=== PATIENT | male | born 1960 | race Caucasian/White ===

== ENCOUNTER 2017-01-06 09:06 | Inpatient (IN) | payer OTHER ==
--- NOTE | 2017-01-04 23:15 | Pre-op HX & Phy Repo 2 SIG ---
DATE OF ADMISSION: HISTORY OF PRESENT ILLNESS: The patient is a 56-year-old male in overall stable health with a malfunctioning Miller continent ileostomy with progressively more difficult intubations with bleeding. The patient developed ulcerative colitis in 1978. In 1981 he underwent proctocolectomy with Olga ileostomy. He had severe allergies to the appliances required and in 1995 he underwent conversion of his malfunctioning conventional ileostomy to a Miller type of Kock pouch continent ileostomy. In September 2014 he underwent surgery because of severe incontinence of stool and gas and frequent intubations. He was found to have a very scarred pouch which was resected and a new Miller continent ileostomy was created. The pathology revealed no evidence of Crohn's disease. After the surgery over two years ago, the patient did very well. In August 2016, he noted that occasionally his 30-Latvian Medena or Elena silicone intubation catheters would fold over at the tip and present difficulty withdrawing the catheter. This has become progressively more severe despite his keeping an indwelling catheter in place for a period of days. When he removes the catheter, the same problems continued. He has difficulty with every intubation, sometimes much more severe than others and some blood with every intubation. He is scheduled to undergo pouch endoscopy and then surgical revision of his malfunctioning Miller continent ileostomy. MEDICATIONS: Propranolol 40 mg twice a day for hypertension, clonazepam 1 mg twice a day, oxycodone 10 mg every 3 to 4 hours and during the night for chronic back and neck pain as well as myofascial pain, and ibuprofen 800 mg one to two times a day for myofascial pain. ALLERGIES TO MEDICATIONS: None. OPERATIONS: In addition to the above, he underwent sinus surgery in the past. REVIEW OF SYSTEMS: Chronic back and neck pain and chronic myofascial pain for many years. PHYSICAL EXAMINATION: VITAL SIGNS: The patient is 5 foot, 7 inches and approximately 185 pounds. [place] and will be examined upon arrival and dictated separately. IMPRESSION: 1. Malfunctioning Miller continent ileostomy with severe difficulty with intubation and bleeding. 2. History of ulcerative colitis. 3. Status post multiple abdominal operations. 3.1. Proctocolectomy and Olga ileostomy in 1981. 3.2. Creation of Miller continent ileostomy in 1995. 3.3. Resection of failed Miller continent ileostomy and creation of new Miller continent ileostomy in September 2014. 4. Hypertension. 5. Chronic back and neck pain and chronic myofascial pain. DISCUSSION: The patient will undergo pouch endoscopy, which will reveal the cause of his difficulty. As indicated by the endoscopy, he will undergo surgery and I will have a full discussion in person when the [place] and is examined and I will answer all questions. I will discuss the endoscopic findings and the planned surgery, options, and risks. He will undergo insertion of a dual lumen PICC line, bowel prep, with concomitant intravenous hydration and intravenous preoperative antibiotics and preoperative subcutaneous heparin. Talha Luna M.D. DR: Duyen JOB#: [id number] CC: WAYNE
[~2017-01-06] VITALS: Ht 170.2 cm; Wt 77.1 kg
[~2017-01-06 09:06] MED LIST: INDERAL LA60 MG ORAL; KLONOPIN1 MG ORAL; MULTIVITAMINS1 EAC2 ORAL; OXYCODONE HCL10 MG ORAL; VITAMIN D1000 UNI1 ORAL
[2017-01-06 09:45] VITALS: BP 115/79
[2017-01-06] MEDS ORDERED: Heparin 2000 units/Ns 1000ml INJ ONE (10:15)
[2017-01-06] MEDS ORDERED: Lidocaine 1% Plain 30 ml INJ ONE (10:15)
[2017-01-06 10:50] LABS: BASOPHILS % (AUTO) 0.9 % (0.0-2.0); EOSINOPHILS % (AUTO) 4.7 % (0.0-3.0); LYMPHOCYTES % (AUTO) 23.8 % (20.0-45.0); MEAN CORPUSCULAR HGB CONC 33.6 G/DL (32.0-36.0); MEAN CORPUSCULAR VOLUME 92 FL (80-99); MEAN PLATELET VOLUME 7.9 FL (6.5-10.1); MONOCYTES % (AUTO) 9.8 % (1.0-10.0); NEUTROPHILS % (AUTO) 60.8 % (45.0-75.0); PLATELET COUNT 215 K/UL (150-450); RED BLOOD COUNT 4.37 M/UL (4.70-6.10); RED CELL DISTRIBUTION WIDTH 11.6 % (11.6-14.8); WHITE BLOOD COUNT 6.5 K/UL (4.8-10.8)
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
[2017-01-06 10:59] LABS: PROTHROMBIN TIME 10.2 SEC (9.30-11.50)
[2017-01-06 11:07] LABS: ALANINE AMINOTRANSFERASE 31 U/L (3-41); ALBUMIN/GLOBULIN RATIO 1.5 (1.0-2.7); ANION GAP 11 (5-15); ASPARTATE AMINO TRANSFERASE 31 U/L (5-40); CALCIUM 9.3 mg/dL (8.6-10.2); CARBON DIOXIDE 28 mEQ/L (20-30); CHLORIDE 99 mEQ/L (98-107); GLOMERULAR FILTRATION RATE > 60 mL/min (>60); HEMOLYSIS 3; POTASSIUM 3.9 mEQ/L (3.4-4.9); SODIUM 138 mEQ/L (135-145)
[2017-01-06 12:00] VITALS: BP 132/89
[2017-01-06] MEDS: Propranolol ER 60mg cap ORAL SCH ×2 (12:11→17:55)
[2017-01-06] MEDS: Neomycin Sulfate 500mg Tab ORAL SCH ×3 (12:11→19:42)
--- NOTE | 2017-01-06 12:19 | Diagnostic Imaging Report ---
Indication: Cough Comparison: 09/17/14 A single view chest radiograph was obtained. Findings: Cardiomediastinal appearance is within normal limits for age. There is a PICC line present in the left arm. Tip terminates in the SVC. Pulmonary vascularity is appropriate. The diaphragmatic contour is smooth and costophrenic angles are sharp. No pleural effusions are identified. The bones are unremarkable. Impression: No acute findings
--- NOTE | 2017-01-06 12:38 | General Progress Note ---
Progress Note Progress Note H&P dictated. Imp. Malfunctioning Miller continent ileostomy Plan; Raymond endoscopy, prep for surgery in YING GORMAN Jan 06, 2017 12:38
--- NOTE | 2017-01-06 12:38 | Pre-Procedure Note/Attestation ---
Pre-Procedure Note/Attestation Complete Prior to Procedure Planned Procedure: not applicable Procedure Narrative: Miller continent ileostomy pouch endoscopy Indications for Procedure Pre-Operative Diagnosis: malfunctioning Miller continent ileostomy with difficulty with intubation Attestation I attest that I discussed the nature of the procedure; its benefits; risks and complications; and alternatives (and the risks and benefits of such alternatives ), prior to the procedure, with the patient (or the patient's legal direct sales representative). I attest that, if there was a reasonable possibility of needing a blood transfusion, the patient (or the patient's legal direct sales representative) was given the [facility] standardized written summary, pursuant to the [place] Blood Safety Act ([place] Health and Safety Code # 1645, as amended). I attest that I re-evaluated the patient just prior to the surgery and that there has been no change in the patient's H&P, except as documented below:none YING MÉNDEZ Jan 06, 2017 12:38
[2017-01-06 13:15] LABS: APPEARANCE,URINE CLEAR; KETONES,URINE 3+ (NEGATIVE); LEUKOCYTE ESTERASE ,URINE NEGATIVE (NEGATIVE); NITRITE,URINE NEGATIVE (NEGATIVE); PH,URINE 6 (4.5-8.0); PROTEIN,URINE NEGATIVE (NEGATIVE); UROBILINOGEN,URINE NORMAL MG/DL (0.0-1.0)
--- NOTE | 2017-01-06 13:20 | Brief Operative Note ---
Immediate Post Operative Note Operative Note Pre-op Diagnosis: malfunctioning Miller continent ileostomy with difficulty with intubation Procedure: Miller pouch endoscopy Post-op Diagnosis: redundant, angulated access segment, normal pouch and valve Post-op Diagnosis: same as pre-op Findings: consistent w/pre-op dx studies Surgeon: lizett Anesthesiologist: daysi Anesthesia: other - none Specimen: none Complications: none Condition: stable Fluids: none Estimated Blood Loss: none Drains: other - 26 fr cueto to Miller pouch Implant(s) used?: YING Rivera Jan 06, 2017 13:20
[2017-01-06 13:24] LABS: RBC,URINE 0 /HPF (0 - 0); SQUAMOUS EPITHELIAL CELL,UR OCCASIONAL /LPF (NONE/OCC); WBC,URINE 0-2 /HPF (0 - 0)
[2017-01-06 13:30] VITALS: BP 128/83
[2017-01-06] MEDS: oxyCODONE 5mg IR tab ORAL PRN ×2 (13:49→17:55)
[2017-01-06 16:00] VITALS: BP 114/75
[2017-01-06] MEDS: Oxymetazoline 0.05% Na Spray 30ml NASAL SCH (17:55)
[2017-01-06] MEDS: D5 1/2NS w/KCl 20mEq 1,000 ML IV SCH (17:56)
[2017-01-06 20:00] VITALS: BP 130/76
[2017-01-07] VITALS (15 sets, daily range): BP systolic 85–118; BP diastolic 57–82
[2017-01-07] MEDS: oxyCODONE 5mg IR tab ORAL PRN (00:41)
[2017-01-07] MEDS ORDERED: Unasyn 3gm Inj ONE ×2 (00:48)
[2017-01-07] MEDS: Ampicillin/Sulbactam Sod 3 GM in NS 110 ML IVPB SCH ×4 (05:28→12:00)
[2017-01-07] MEDS: D5 1/2NS w/KCl 20mEq 1,000 ML IV SCH (05:28)
[2017-01-07] MEDS ORDERED: Heparin 5000 units/ml inj SUBQ ONE (05:30)
[2017-01-07] MEDS ORDERED: NeoSporin Gu Irrig 1ml Amp IRRIG ONE (07:03)
[2017-01-07] MEDS ORDERED: Bacitracin 50000 Units Vial ONE (07:03)
--- NOTE | 2017-01-07 07:08 | Pre-Procedure Note/Attestation ---
Pre-Procedure Note/Attestation Complete Prior to Procedure Planned Procedure: not applicable Procedure Narrative: laparotomy with revision Miller continent ileostomy; possible gastrostomy Indications for Procedure Pre-Operative Diagnosis: malfunctioning Miller continent ileostomy with difficulty with intubation Attestation I attest that I discussed the nature of the procedure; its benefits; risks and complications; and alternatives (and the risks and benefits of such alternatives ), prior to the procedure, with the patient (or the patient's legal accounting representative). I attest that, if there was a reasonable possibility of needing a blood transfusion, the patient (or the patient's legal accounting representative) was given the [facility] standardized written summary, pursuant to the [place] Blood Safety Act ([place] Health and Safety Code # 1645, as amended). I attest that I re-evaluated the patient just prior to the surgery and that there has been no change in the patient's H&P, except as documented below:none YING MÉNDEZ Jan 07, 2017 07:08
[2017-01-07] MEDS ORDERED: Sterile Water Irrig 1000ml IRRIG ONE (07:30)
[2017-01-07] MEDS ORDERED: Propofol 200mg/20ml IV ONE (07:30)
[2017-01-07] MEDS ORDERED: Midazolam 2mg/2ml Inj ONE (07:30)
[2017-01-07] MEDS ORDERED: NS Irrig 1000ml ONE (07:30)
[2017-01-07] MEDS ORDERED: fentaNYL 250mcg/5ml ONE (07:30)
[2017-01-07] MEDS ORDERED: LR 1000ml ONE (07:30)
[2017-01-07] MEDS ORDERED: Lidocaine 1% MPF 10mg/ml 5ml ONE (07:30)
[2017-01-07] MEDS ORDERED: Morphine Sulfate 10mg/ml Inj ONE (07:30)
[2017-01-07] MEDS ORDERED: Ketorolac 30mg Inj ONE (07:30)
[2017-01-07] MEDS ORDERED: Neostigmine 1mg/ml 10ml Inj ONE (07:30)
[2017-01-07] MEDS ORDERED: Zemuron 50mg/5ml Inj IV ONE (07:30)
[2017-01-07] MEDS ORDERED: Succinylcholine 20mg/ml 10ml vial ONE (07:30)
[2017-01-07] MEDS ORDERED: Glycopyrrolate 0.2mg/ml 1ml Vial ONE (07:30)
[2017-01-07] MEDS ORDERED: NS Irrig 1000ml IRRIG ONE (07:35)
[2017-01-07] MEDS ORDERED: LR 1000ml 1,000 ML IVLG SCH (08:24)
[2017-01-07] MEDS ORDERED: Ketorolac 30mg Inj IV PRN (08:30)
[2017-01-07] MEDS ORDERED: Midazolam 2mg/2ml Inj IVP PRN (08:30)
[2017-01-07] MEDS ORDERED: Meperidine 25mg/0.5ml Inj (FOR RIGORS ONLY) IV PRN (08:30)
[2017-01-07] MEDS ORDERED: Hydromorphone 0.5mg/0.5ml inj IVP PRN (08:30)
[2017-01-07] MEDS ORDERED: DiphenhydrAMINE 50mg/ml Inj IVP PRN ×2 (08:30→10:15)
[2017-01-07] MEDS: Dyna-Hex 2% Top Sol 2oz TOPIC SCH (09:00)
[2017-01-07] MEDS: Propranolol ER 60mg cap ORAL SCH ×2 (09:00→17:36)
[2017-01-07] MEDS: Oxymetazoline 0.05% Na Spray 30ml NASAL SCH ×2 (09:00→17:36)
[2017-01-07] MEDS ORDERED: Rate Change PCA 1 Each MISC PRN (10:15)
[2017-01-07] MEDS ORDERED: Naloxone 0.4mg/ml Inj IVP PRN (10:15)
--- NOTE | 2017-01-07 10:21 | Brief Operative Note ---
Immediate Post Operative Note Operative Note Pre-op Diagnosis: malfunctioning Miller continent ileostomy with difficulty with intubation Procedure: laparotomy with revision Miller Pouch stoma and access segment Post-op Diagnosis: malfunctioning Miller continent ileostomy Post-op Diagnosis: same as pre-op Findings: consistent w/pre-op dx studies Surgeon: lizett Crystal Machining Coordinator: carire Anesthesiologist: deepti Anesthesia: general Specimen: yes - stoma and access segment Complications: none Condition: stable Fluids: see anesthesia record Estimated Blood Loss: volume - 50ml Drains: other - 28 cueto to Miller pouch Implant(s) used?: No YING MÉNDEZ Jan 07, 2017 10:21
--- NOTE | 2017-01-07 10:30 | Immediate Post-Op Evaluation ---
Immediate Post-Op Evalulation Immediate Post-Op Evalulation Procedure: Exploratory laparotomy,lysis of adhesions, revision of continent pouch Date of Evaluation: Jan 07, 2017 Time of Evaluation: 10:29 IV Fluids: 1200 Blood Products: none Estimated Blood Loss: 100 Urinary Output: 450 Blood Pressure Systolic: 110 Blood Pressure Diastolic: 71 Pulse Rate: 80 Respiratory Rate: 20 O2 Sat by Pulse Oximetry: 98 Temperature (Fahrenheit): 98.2 Pain Score (1-10): 2 Nausea: No Vomiting: No Complications none Patient Status: awake, patent, extubated, none Hydration Status: adequate Drug: as scheduled DHAAR STEWART M.D. Jan 07, 2017 10:30
--- NOTE | 2017-01-07 10:46 | Pre-op HX & Phy Repo 2 SIG ---
DATE OF ADMISSION: 01/06/2017 HISTORY OF PRESENT ILLNESS: The [place]. Please see previously dictated history. PHYSICAL EXAMINATION: GENERAL: He is well developed and well nourished, 5 foot 7 inches, approximately 185 pounds. HEENT: Within normal limits. LUNGS: Clear. HEART: Regular rhythm. BREASTS: Without masses. ABDOMEN: Soft and somewhat distended. There is a long midline incision and the stoma of the Miller continent ileostomy low on the right lower quadrant. GENITALIA: Within normal limits. RECTAL: Status post proctectomy. EXTREMITIES: Without edema. Pulses 2+ femoral to pedal bilaterally. NEUROLOGIC: Physiologic. IMPRESSION: 1. Malfunctioning Miller continent ileostomy with severe difficulty with intubation. 2. History of ulcerative colitis. 3. Status post multiple abdominal operations. 3.1. Proctocolectomy and Olga ileostomy in 1981. 3.2. Creation of Miller continent ileostomy in 1995. 3.3. Resection of failed Miller continent ileostomy and creation of new Miller continent ileostomy in September 2014. 4. Hypertension. 5. Chronic back and neck pain. 6. Chronic myofascial pain. DISCUSSION: The patient has undergone pouch endoscopy revealing a normal pouch and well-formed nipple valve but redundancy and elongation with angulation of the access segment. I have had a full discussion with the patient regarding the nature of surgery including laparotomy revision of the pouch and stoma and access segment and possible catheter gastrostomy. He understands that additional procedures may be needed based on intraoperative findings. I have had a full discussion regarding the nature of the procedures and risks including bleeding, infection, injury to adjacent structures or organs, recurrent difficulties with the pouch leading to additional procedures being necessary, deep vein thrombosis despite prophylaxis, etc. All questions have been answered. He understands and agrees to proceed. Talha Luna M.D. DR: LIZANDRO JOB#: [id number] CC:
[2017-01-07] MEDS ORDERED: Morphine Sulfate 2mg/ml Inj IVP PRN (11:00)
[2017-01-07] MEDS ORDERED: Morphine Sulfate 4mg/ml Inj SUBQ PRN (11:00)
[2017-01-07] MEDS: PCA Morphine 1mg/ml 30 ML IV PRN ×2 (11:06→20:16)
--- NOTE | 2017-01-07 11:30 | 48 Hour Post Anesthesia Eval ---
Post Anesthesia Evaluation Procedure: Exploratory laparotomy,lysis of adhesions, revision of continent pouch Date of Evaluation: Jan 07, 2017 Time of Evaluation: 11:29 Blood Pressure Systolic: 96 0: 58 Pulse Rate: 64 Respiratory Rate: 20 Temperature (Fahrenheit): 97.6 O2 Sat by Pulse Oximetry: 98 Airway: patent Nausea: No Vomiting: No Pain Intensity: 3 Hydration Status: adequate Cardiopulmonary Status: stable Mental Status/LOC: patient returned to baseline Follow-up Care/Observations: n/a Post-Anesthesia Complications: none Follow-up care needed: N/A DHARA STEWART M.D. Jan 07, 2017 11:30
[2017-01-07] MEDS ORDERED: PCA Education Pamphlet MISC ONE (13:00)
[2017-01-07] MEDS ORDERED: Acetaminophen 650mg/20.3ml GT PRN (13:00)
[2017-01-07] MEDS ORDERED: D5 1/4NS w/KCl 20mEq 1,000 ML IV SCH (13:00)
[2017-01-07] MEDS ORDERED: LORazepam 1mg tab SL PRN ×2 (13:00→21:00)
[2017-01-07] MEDS ORDERED: ALPRAZolam 0.5mg tab ORAL ONE (16:30)
[2017-01-07] MEDS: Ampicillin/Sulbactam Sod 3 GM in NS 110 ML IV SCH (17:36)
[2017-01-07] MEDS: PCA shift volume MISC SCH (19:24)
[2017-01-07] MEDS: D5 1/4NS w/KCl 20mEq 1,000 ML IV SCH (21:57)
[2017-01-07] MEDS: ALPRAZolam 0.25mg tab ORAL PRN (23:00)
[2017-01-08 00:04] VITALS: BP 113/74
[2017-01-08] MEDS: Ampicillin/Sulbactam Sod 3 GM in NS 110 ML IV SCH ×5 (00:12→23:30)
--- NOTE | 2017-01-08 03:15 | Operative Note - Dictated ---
DATE OF OPERATION: 01/07/2017 SURGEON: Talha Luna M.D. HOLLOW HANDLE KNIFE ASSEMBLER SURGEON: Arnoldo Loving M.D. ANESTHESIOLOGIST: Jermain Iglesias M.D. TYPE OF ANESTHESIA: General endotracheal. PREOPERATIVE DIAGNOSES: 1. Malfunctioning Miller continent ileostomy with severe difficulty with intubation and bleeding. 2. History of ulcerative colitis. 3. STATUS POST MULTIPLE ABDOMINAL OPERATIONS: 3.1. Proctocolectomy and Olga ileostomy in 1981. 3.2. Creation of Miller continent ileostomy in 1995. 3.3. Resection of failed Miller continent ileostomy and creation of new Miller continent ileostomy pouch in September 2014. POSTOPERATIVE DIAGNOSES: 1. Malfunctioning Miller continent ileostomy with severe difficulty with intubation and bleeding. 2. History of ulcerative colitis. 3. STATUS POST MULTIPLE ABDOMINAL OPERATIONS: 3.1. Proctocolectomy and Olga ileostomy in 1981. 3.2. Creation of Miller continent ileostomy in 1995. 3.3. Resection of failed Miller continent ileostomy and creation of new Miller continent ileostomy pouch in September 2014. OPERATION PERFORMED: Laparotomy with revision of Miller continent ileostomy stoma and access segment. DESCRIPTION OF PROCEDURE: The patient was taken to the operating room and under general endotracheal anesthesia having received preoperative intravenous antibiotics and subcutaneous heparin and with sequential compression device stockings and Pereira catheter in place utilizing a 16-Romanian coude catheter, the patient was prepped and draped in the usual fashion. Previous left paramedian incision was reopened from umbilicus to pubis excising the upper part of the scar, which had been widened. There were diffuse adhesions to the anterior abdominal wall and between loops of bowel. The continent ileostomy pouch was densely adherent to the bladder and retroperitoneum. It was completely mobilized from the retroperitoneum protecting the bladder and ureters. The stoma in the right lower quadrant was circumscribed with a transversely oriented elliptical incision bringing the stoma and access segment with its mesentery into the abdominal cavity. The access segment was clearly redundant as had been evident on the pouch endoscopy. With the access segment on stretch, I could readily insert a 28-Romanian Pereira catheter into the pouch as well as a Gilbert suction without any limitation. In view of the patient reporting no incontinence at all and the findings of a normal pouch and nipple valve on endoscopy, I saw no reason to open the pouch. We did manually occlude the afferent bowel with the catheter in the pouch and distended it with 400 mL of saline. Upon removing the catheter, there was no incontinence. The catheter was reintroduced and the pouch decompressed. The operative field was irrigated and inspected for hemostasis, which was secure. The medial aspect of the stoma incision was closed with several interrupted 4-0 Monocryl subcuticular sutures. Then the stoma and access segment were brought through the same location in the right lower quadrant. The pouch was sutured to the peritoneum with 3-0 Vicryl sutures. The 28-Romanian Pereira catheter again was passed readily into the pouch and then the redundant access segment placed on stretch and the redundancy excised and the stoma primarily matured with continuous 2-0 chromic locking sutures starting at the 3 and 9 o'clock positions. A very satisfactory stoma was achieved. The position of the catheter tip in the apex of the pouch was confirmed and the catheter was marked at the level of the stoma with a 3-0 silk suture and it was then sutured to the skin with 2 sutures of 2-0 silk. The catheter was flushed and connected to a gravity drainage bag. The anesthesiologist passed an orogastric tube just to decompress the stomach, but I did not see any indication for catheter gastrostomy in this patient. After ascertaining that hemostasis was secure and having protected the abdominal wall throughout the procedure with antibiotic soaked laps, the left paramedian incision was closed with continuous #1 Prolene inverting the knots. Subcutaneous tissues again irrigated with antibiotic solution and the skin closed with jonna. Dry sterile dressings were applied. Final sponge and needle counts were correct. The patient tolerated the procedure well and left the operating room in good condition. Talha Luna M.D. DR: AGUSTIN JOB#: [id number] CC: WAYNE
[2017-01-08 04:29] VITALS: BP 100/60
[2017-01-08 05:22] LABS: BASOPHILS % (AUTO) 0.7 % (0.0-2.0); EOSINOPHILS % (AUTO) 1.4 % (0.0-3.0); MEAN CORPUSCULAR HEMOGLOBIN 31.7 PG (27.0-31.0); MEAN CORPUSCULAR HGB CONC 34.1 G/DL (32.0-36.0); MEAN CORPUSCULAR VOLUME 93 FL (80-99); MEAN PLATELET VOLUME 8.7 FL (6.5-10.1); MONOCYTES % (AUTO) 8.5 % (1.0-10.0); NEUTROPHILS % (AUTO) 77.4 % (45.0-75.0); PLATELET COUNT 166 K/UL (150-450); RED BLOOD COUNT 3.69 M/UL (4.70-6.10); RED CELL DISTRIBUTION WIDTH 11.6 % (11.6-14.8); WHITE BLOOD COUNT 9.3 K/UL (4.8-10.8)
[2017-01-08 05:50] LABS: ANION GAP 8 (5-15); CALCIUM 8.2 mg/dL (8.6-10.2); CARBON DIOXIDE 28 mEQ/L (20-30); CHLORIDE 105 mEQ/L (98-107); CREATININE 0.7 mg/dL (0.7-1.2); GLOMERULAR FILTRATION RATE > 60 mL/min (>60); HEMOLYSIS 2; POTASSIUM 3.6 mEQ/L (3.4-4.9); SODIUM 141 mEQ/L (135-145)
[2017-01-08] MEDS: D5 1/4NS w/KCl 20mEq 1,000 ML IV SCH ×3 (05:52→20:38)
[2017-01-08] MEDS: PCA Morphine 1mg/ml 30 ML IV PRN ×2 (06:05→15:55)
[2017-01-08] MEDS: PCA shift volume MISC SCH ×2 (07:06→19:15)
[2017-01-08 08:08] VITALS: BP 102/64
[2017-01-08] MEDS: Oxymetazoline 0.05% Na Spray 30ml NASAL SCH (08:14)
[2017-01-08] MEDS: Propranolol ER 60mg cap ORAL SCH ×2 (08:15→17:04)
[2017-01-08] MEDS: Dyna-Hex 2% Top Sol 2oz TOPIC SCH (08:15)
--- NOTE | 2017-01-08 09:44 | General Progress Note ---
Progress Note Progress Note AVSS pain controlled with MS CONCRETE VAULT MAKER Chest clear, Cor reg rhythm Abdomen distended and tympanitic, incision clean, stoma pink Urine only 350cc overnight BCIR ileo 25cc WBC 9300 Hgb 11.7 BUN 10 Cr 0.7 Imp: Ileus Plan: NPO Mobilize f/u labs YING MÉNDEZ Jan 08, 2017 09:44
[2017-01-08] MEDS ORDERED: NS Irrig 1000ml ONE (09:52)
[2017-01-08] MEDS ORDERED: Tubing IV Secondary IV ONE (09:52)
[2017-01-08] MEDS ORDERED: Rate Change PCA 1 Each MISC PRN (10:00)
[2017-01-08] MEDS ORDERED: DiphenhydrAMINE 50mg/ml Inj IVP PRN (10:00)
[2017-01-08] MEDS ORDERED: Naloxone 0.4mg/ml Inj IVP PRN (10:00)
[2017-01-08] MEDS ORDERED: Morphine Sulfate 2mg/ml Inj IVP PRN (10:00)
[2017-01-08 11:49] VITALS: BP 112/73
[2017-01-08] MEDS: Morphine Sulfate 4mg/ml Inj SUBQ PRN ×2 (12:11→20:39)
--- NOTE | 2017-01-08 12:43 | Cardiology Report ---
APPROVED REPORT EKG Measurement Heart [id number] Normal sinus rhythm Normal ECG
[2017-01-08 16:00] VITALS: BP 103/70
[2017-01-08] MEDS: Pseudoephedrine 30mg tab ORAL PRN (16:55)
[2017-01-08 20:09] VITALS: BP 114/73
[2017-01-08] MEDS: ALPRAZolam 0.25mg tab ORAL PRN (23:38)
[2017-01-09 00:06] VITALS: BP 106/70
[2017-01-09] MEDS: PCA Morphine 1mg/ml 30 ML IV PRN (02:05)
[2017-01-09] MEDS: Pseudoephedrine 30mg tab ORAL PRN (03:07)
[2017-01-09 04:08] VITALS: BP 108/75
[2017-01-09 05:28] LABS: EOSINOPHILS % (AUTO) 3.1 % (0.0-3.0); LYMPHOCYTES % (AUTO) 18.5 % (20.0-45.0); MEAN CORPUSCULAR HEMOGLOBIN 33.4 PG (27.0-31.0); MEAN CORPUSCULAR VOLUME 93 FL (80-99); MEAN PLATELET VOLUME 8.2 FL (6.5-10.1); MONOCYTES % (AUTO) 10.8 % (1.0-10.0); NEUTROPHILS % (AUTO) 66.6 % (45.0-75.0); PLATELET COUNT 125 K/UL (150-450); RED BLOOD COUNT 3.38 M/UL (4.70-6.10); RED CELL DISTRIBUTION WIDTH 11.5 % (11.6-14.8)
[2017-01-09] MEDS: D5 1/4NS w/KCl 20mEq 1,000 ML IV SCH ×3 (06:00→21:31)
[2017-01-09 06:05] LABS: ANION GAP 10 (5-15); CALCIUM 8.2 mg/dL (8.6-10.2); CARBON DIOXIDE 28 mEQ/L (20-30); CHLORIDE 99 mEQ/L (98-107); CREATININE 0.7 mg/dL (0.7-1.2); GLOMERULAR FILTRATION RATE > 60 mL/min (>60); HEMOLYSIS 7; POTASSIUM 3.6 mEQ/L (3.4-4.9); SODIUM 137 mEQ/L (135-145)
[2017-01-09 06:06] LABS: HEMOLYSIS 9; IRON 21 ug/dL (59-158); TOTAL IRON BINDING CAPACITY 192 ug/dL (250-400)
[2017-01-09] MEDS: Ampicillin/Sulbactam Sod 3 GM in NS 110 ML IV SCH ×3 (06:20→17:11)
[2017-01-09] MEDS: PCA shift volume MISC SCH ×2 (07:05→19:04)
[2017-01-09] MEDS: Propranolol ER 60mg cap ORAL SCH ×2 (08:29→17:09)
[2017-01-09] MEDS: Dyna-Hex 2% Top Sol 2oz TOPIC SCH (08:29)
[2017-01-09 08:33] VITALS: BP 126/80
--- NOTE | 2017-01-09 09:06 | General Progress Note ---
Progress Note Progress Note AVSS Crying intermittently c/o sinus congestion and nausea Abdomen distended, soft, incision clean, stoma pink Urine 1800 (up) BCIR ileo 35 enteric WBC 9000 Hgb 11.5 stable Platelets 125,000 Iron 21 B12 level 139 Imp. Ileus Sinus congestion Low iron/B12 levels Plan: NPO continue Pereira (pelvic dissection) Give Venofer 100mg IV daily + B12 IM x 2 Afrin + sudafed d/c continuous basal infusion of PHYSICAL SECURITY MANAGER d/c Flagyl - continue YING Scott Jan 09, 2017 09:06
[2017-01-09] MEDS ORDERED: Naloxone 0.4mg/ml Inj IVP PRN (09:30)
[2017-01-09] MEDS ORDERED: Morphine Sulfate 4mg/ml Inj SUBQ PRN (09:30)
[2017-01-09] MEDS ORDERED: DiphenhydrAMINE 50mg/ml Inj IVP PRN (09:30)
[2017-01-09] MEDS ORDERED: Rate Change PCA 1 Each MISC PRN (09:30)
[2017-01-09] MEDS ORDERED: PCA Morphine 1mg/ml 30 ML IV PRN (09:30)
[2017-01-09] MEDS ORDERED: Morphine Sulfate 2mg/ml Inj IVP PRN (09:30)
[2017-01-09] MEDS ORDERED: Vitamin B12 1000mcg/ml Inj IM ONE (10:00)
[2017-01-09] MEDS: Oxymetazoline 0.05% Na Spray 30ml NASAL PRN ×2 (10:44→22:39)
[2017-01-09 12:00] VITALS: BP 126/84
[2017-01-09] MEDS ORDERED: NS 500ML IV ONE (15:47)
[2017-01-09 16:00] VITALS: BP 128/86
[2017-01-09 20:00] VITALS: BP 131/83
[2017-01-09] MEDS: Iron Sucrose 100 MG in NS 55 ML IV SCH (21:30)
[2017-01-09] MEDS: ALPRAZolam 0.25mg tab ORAL PRN (22:38)
[2017-01-10] VITALS: BP 139/87
[2017-01-10] MEDS ORDERED: Acetaminophen 650mg/20.3ml ORAL PRN (01:00)
[2017-01-10 04:00] VITALS: BP 127/81
[2017-01-10] MEDS: Ampicillin/Sulbactam Sod 3 GM in NS 110 ML IV SCH ×4 (05:45→11:27)
[2017-01-10] MEDS: D5 1/4NS w/KCl 20mEq 1,000 ML IV SCH ×3 (05:45→21:42)
[2017-01-10] MEDS: PCA shift volume MISC SCH ×2 (07:12→19:04)
[2017-01-10 08:00] VITALS: BP 111/71
[2017-01-10] MEDS: Dyna-Hex 2% Top Sol 2oz TOPIC SCH (08:45)
[2017-01-10] MEDS: Propranolol ER 60mg cap ORAL SCH ×2 (08:48→17:19)
[2017-01-10] MEDS ORDERED: Naloxone 0.4mg/ml Inj IVP PRN (09:56)
[2017-01-10] MEDS ORDERED: Rate Change PCA 1 Each MISC PRN (10:00)
[2017-01-10] MEDS ORDERED: PCA Morphine 1mg/ml 30 ML IV PRN (10:00)
[2017-01-10] MEDS ORDERED: Morphine Sulfate 4mg/ml Inj SUBQ PRN (10:00)
[2017-01-10] MEDS ORDERED: Morphine Sulfate 2mg/ml Inj IVP PRN (10:00)
[2017-01-10] MEDS ORDERED: DiphenhydrAMINE 50mg/ml Inj IVP PRN (10:00)
--- NOTE | 2017-01-10 10:06 | General Progress Note ---
Progress Note Progress Note AVSS Doing better this AM - had been crying and upset. Better without basal infusion of COMMERCIAL LOAN CLOSER Abdomen much less distended, healing nicely Urine 4350 BCIR ileo 610 Imp. Improving Plan; D/C antibiotics Ambulate in hallways BID Add'l B12 dose IM .labs in AM continue NPO YING MÉNDEZ Jan 10, 2017 10:06
[2017-01-10] MEDS ORDERED: Vitamin B12 1000mcg/ml Inj IM ONE (10:30)
[2017-01-10] MEDS ORDERED: Tubing IV Secondary IV ONE (11:30)
[2017-01-10 12:00] VITALS: BP 119/77
[2017-01-10] MEDS: Oxymetazoline 0.05% Na Spray 30ml NASAL PRN (14:41)
[2017-01-10 16:00] VITALS: BP 143/87
[2017-01-10 20:00] VITALS: BP 133/86
[2017-01-10] MEDS: Iron Sucrose 100 MG in NS 55 ML IV SCH (21:00)
[2017-01-11] VITALS: BP 139/84
[2017-01-11] MEDS: ALPRAZolam 0.25mg tab ORAL PRN (01:37)
[2017-01-11 04:00] VITALS: BP 123/77
[2017-01-11] MEDS: D5 1/4NS w/KCl 20mEq 1,000 ML IV SCH ×3 (05:05→22:13)
[2017-01-11 05:16] LABS: BASOPHILS % (AUTO) 1.1 % (0.0-2.0); EOSINOPHILS % (AUTO) 7.3 % (0.0-3.0); LYMPHOCYTES % (AUTO) 22.9 % (20.0-45.0); MEAN CORPUSCULAR HEMOGLOBIN 33.2 PG (27.0-31.0); MEAN CORPUSCULAR HGB CONC 35.8 G/DL (32.0-36.0); MEAN CORPUSCULAR VOLUME 93 FL (80-99); MEAN PLATELET VOLUME 8.4 FL (6.5-10.1); MONOCYTES % (AUTO) 11.9 % (1.0-10.0); NEUTROPHILS % (AUTO) 56.8 % (45.0-75.0); PLATELET COUNT 200 K/UL (150-450); RED BLOOD COUNT 3.68 M/UL (4.70-6.10); RED CELL DISTRIBUTION WIDTH 11.6 % (11.6-14.8); WHITE BLOOD COUNT 7.5 K/UL (4.8-10.8)
[2017-01-11 05:32] LABS: ANION GAP 10 (5-15); CALCIUM 8.9 mg/dL (8.6-10.2); CARBON DIOXIDE 29 mEQ/L (20-30); CHLORIDE 100 mEQ/L (98-107); CREATININE 0.7 mg/dL (0.7-1.2); GLOMERULAR FILTRATION RATE > 60 mL/min (>60); HEMOLYSIS 2; POTASSIUM 3.4 mEQ/L (3.4-4.9); SODIUM 139 mEQ/L (135-145)
[2017-01-11] MEDS: PCA shift volume MISC SCH ×2 (07:23→19:00)
[2017-01-11 07:58] VITALS: BP 112/76
[2017-01-11] MEDS: Propranolol ER 60mg cap ORAL SCH ×2 (08:40→17:01)
[2017-01-11] MEDS: Dyna-Hex 2% Top Sol 2oz TOPIC SCH (08:42)
--- NOTE | 2017-01-11 11:25 | General Progress Note ---
Progress Note Progress Note AVSS Ambulating freely; hungry Abdomen soft, non-distended, healing nicely Urine 3450 BCIR ileo 1340 WBC 7500 Hgb up 12.2 K 3.4 Imp. Resolving ileus Plan: Clear liquid diet will d/c urinary cueto in YING GORMAN Jan 11, 2017 11:25
[2017-01-11] MEDS ORDERED: DiphenhydrAMINE 50mg/ml Inj IVP PRN (11:30)
[2017-01-11] MEDS ORDERED: PCA Morphine 1mg/ml 30 ML IV PRN (11:30)
[2017-01-11] MEDS ORDERED: Naloxone 0.4mg/ml Inj IVP PRN (11:30)
[2017-01-11] MEDS ORDERED: Morphine Sulfate 4mg/ml Inj SUBQ PRN (11:30)
[2017-01-11] MEDS ORDERED: Morphine Sulfate 2mg/ml Inj IVP PRN (11:30)
[2017-01-11] MEDS ORDERED: Rate Change PCA 1 Each MISC PRN (11:30)
[2017-01-11 12:00] VITALS: BP 149/95
[2017-01-11 15:59] VITALS: BP 120/75
[2017-01-11] MEDS: Oxymetazoline 0.05% Na Spray 30ml NASAL PRN (19:36)
[2017-01-11 20:00] VITALS: BP 140/95
[2017-01-11] MEDS: Iron Sucrose 100 MG in NS 55 ML IV SCH (21:00)
[2017-01-12] VITALS: BP 144/84
[2017-01-12] MEDS: ALPRAZolam 0.25mg tab ORAL PRN ×2 (01:52→15:57)
[2017-01-12 04:00] VITALS: BP 121/75
[2017-01-12] MEDS: PCA shift volume MISC SCH ×2 (07:00→19:00)
[2017-01-12 08:24] VITALS: BP 115/69
[2017-01-12] MEDS: Oxymetazoline 0.05% Na Spray 30ml NASAL PRN (08:58)
[2017-01-12] MEDS: Dyna-Hex 2% Top Sol 2oz TOPIC SCH (08:58)
[2017-01-12] MEDS: Propranolol ER 60mg cap ORAL SCH ×2 (08:58→17:28)
[2017-01-12] MEDS ORDERED: Naloxone 0.4mg/ml Inj IVP PRN (09:00)
[2017-01-12] MEDS ORDERED: Rate Change PCA 1 Each MISC PRN (09:00)
--- NOTE | 2017-01-12 09:11 | General Progress Note ---
Progress Note Progress Note AVSS Tolerated clear liquid diet. Abdomen slightly protruberant but not tympanitic, healing nicely Urine 3285 BCIR ileo 1290 Imp: Improving Plan: Full liquid diet decrease IV fluids - continue LAUNDRY OR DRY CLEANERS COUNTER CLERK one more day then resume pre- admission oxycodone labs in AM Maintain continuous drainage of BCIR continent ileostomy YING MÉNDEZ Jan 12, 2017 09:11
[2017-01-12] MEDS ORDERED: Morphine Sulfate 2mg/ml Inj IVP PRN (09:30)
[2017-01-12] MEDS ORDERED: D5 1/4NS w/KCl 20mEq 1,000 ML IV SCH (11:30)
[2017-01-12] MEDS ORDERED: PCA Morphine 1mg/ml 30 ML IV PRN (11:30)
[2017-01-12] MEDS ORDERED: DiphenhydrAMINE 50mg/ml Inj IVP PRN (11:30)
[2017-01-12] MEDS ORDERED: Morphine Sulfate 4mg/ml Inj SUBQ PRN (11:30)
[2017-01-12 12:01] VITALS: BP 111/74
[2017-01-12 16:49] VITALS: BP 124/77
[2017-01-12 20:00] VITALS: BP 128/85
[2017-01-12] MEDS: Iron Sucrose 100 MG in NS 55 ML IV SCH (21:03)
[2017-01-13] VITALS: BP 113/77
[2017-01-13 04:00] VITALS: BP 114/78
[2017-01-13 04:42] LABS: BASOPHILS % (AUTO) 1.2 % (0.0-2.0); EOSINOPHILS % (AUTO) 6.3 % (0.0-3.0); LYMPHOCYTES % (AUTO) 24.3 % (20.0-45.0); MEAN CORPUSCULAR HEMOGLOBIN 31.1 PG (27.0-31.0); MEAN CORPUSCULAR HGB CONC 33.5 G/DL (32.0-36.0); MEAN CORPUSCULAR VOLUME 93 FL (80-99); MEAN PLATELET VOLUME 7.3 FL (6.5-10.1); MONOCYTES % (AUTO) 10.4 % (1.0-10.0); NEUTROPHILS % (AUTO) 57.9 % (45.0-75.0); PLATELET COUNT 244 K/UL (150-450); RED BLOOD COUNT 4.49 M/UL (4.70-6.10); RED CELL DISTRIBUTION WIDTH 11.9 % (11.6-14.8); WHITE BLOOD COUNT 7.4 K/UL (4.8-10.8)
[2017-01-13 05:03] LABS: ANION GAP 12 (5-15); CALCIUM 9.6 mg/dL (8.6-10.2); CARBON DIOXIDE 30 mEQ/L (20-30); CHLORIDE 99 mEQ/L (98-107); CREATININE 0.8 mg/dL (0.7-1.2); GLOMERULAR FILTRATION RATE > 60 mL/min (>60); HEMOLYSIS 1; POTASSIUM 3.8 mEQ/L (3.4-4.9); SODIUM 141 mEQ/L (135-145)
[2017-01-13] MEDS: PCA shift volume MISC SCH (07:12)
[2017-01-13 08:22] VITALS: BP 109/78
--- NOTE | 2017-01-13 08:42 | General Progress Note ---
Progress Note Progress Note AVSS Doing well with full liquid diet. Abdomen soft, healing nicely Urine 1330 BCIR ileo 1965 WBC 7400 Hgb 13.9 BUN 6 Cr 0.8 Imp. Improving Plan; BCIR low residue diet D/C RUBBER BELT SPLICER and resume pre-admission Oxycodone 10mg po q4h prn pain Maintain continuous drainage of BCIR Continent Ileostomy with qa3h flushing by RNs YING MÉNDEZ Jan 13, 2017 08:42
[2017-01-13] MEDS: Propranolol ER 60mg cap ORAL SCH ×2 (08:59→17:45)
[2017-01-13] MEDS: Dyna-Hex 2% Top Sol 2oz TOPIC SCH (09:01)
[2017-01-13] MEDS: oxyCODONE 5mg IR tab ORAL PRN ×4 (09:12→23:11)
[2017-01-13] MEDS ORDERED: NS Irrig 1000ml ONE (11:09)
[2017-01-13] MEDS ORDERED: Tubing IV Secondary IV ONE (11:09)
[2017-01-13 11:39] VITALS: BP 112/81
[2017-01-13 15:48] VITALS: BP 99/70
[2017-01-13] MEDS: Ascorbic Acid 500mg tab ORAL PRN ×2 (16:26→17:50)
[2017-01-13 20:10] VITALS: BP 124/80
[2017-01-13] MEDS: Iron Sucrose 100 MG in NS 55 ML IV SCH (21:00)
[2017-01-14] VITALS (9 sets, daily range): BP systolic 98–136; BP diastolic 63–77
[2017-01-14] MEDS: oxyCODONE 5mg IR tab ORAL PRN ×5 (06:39→23:20)
[2017-01-14] MEDS: Dyna-Hex 2% Top Sol 2oz TOPIC SCH (08:51)
[2017-01-14] MEDS: Propranolol ER 60mg cap ORAL SCH ×2 (08:51→17:49)
--- NOTE | 2017-01-14 10:16 | General Progress Note ---
Progress Note Progress Note AVSS Tolerating BCIR low residue diet Abdomen soft, healing nicely Urine only 1225 BCIr ileo 2320 Imp. Excessive ileostomy output with early dehydration Plan; Resume IV fluids Stool for C. diff toxin f/u labs If C.diff negative and large volume effluent continues, will start Cipro and Flagyl for pouchitis/bacterial overgrowth enteritis YING MÉNDEZ Jan 14, 2017 10:16
[2017-01-14] MEDS ORDERED: ALPRAZolam 0.5mg tab ORAL PRN (10:30)
[2017-01-14] MEDS: Oxymetazoline 0.05% Na Spray 30ml NASAL PRN (10:41)
[2017-01-14] MEDS: D5 1/4NS w/KCl 20mEq 1,000 ML IV SCH ×2 (12:10→20:53)
[2017-01-14] MEDS ORDERED: NS Irrig 1000ml ONE (17:10)
[2017-01-14] MEDS ORDERED: NS 500ML IV ONE (17:10)
[2017-01-14] MEDS ORDERED: Tubing IV Secondary IV ONE (17:10)
[2017-01-15] VITALS: BP 112/81
[2017-01-15] MEDS: Ascorbic Acid 500mg tab ORAL PRN ×2 (03:35→16:16)
[2017-01-15] MEDS: oxyCODONE 5mg IR tab ORAL PRN ×5 (03:35→20:50)
[2017-01-15 04:00] VITALS: BP 125/75
[2017-01-15 05:41] LABS: BASOPHILS % (AUTO) 1.2 % (0.0-2.0); LYMPHOCYTES % (AUTO) 24.2 % (20.0-45.0); MEAN CORPUSCULAR HEMOGLOBIN 33.1 PG (27.0-31.0); MEAN CORPUSCULAR HGB CONC 35.3 G/DL (32.0-36.0); MEAN CORPUSCULAR VOLUME 94 FL (80-99); MEAN PLATELET VOLUME 7.9 FL (6.5-10.1); MONOCYTES % (AUTO) 11.3 % (1.0-10.0); NEUTROPHILS % (AUTO) 57.2 % (45.0-75.0); PLATELET COUNT 251 K/UL (150-450); RED BLOOD COUNT 4.08 M/UL (4.70-6.10); RED CELL DISTRIBUTION WIDTH 12.1 % (11.6-14.8); WHITE BLOOD COUNT 7.8 K/UL (4.8-10.8)
[2017-01-15 06:04] LABS: ALANINE AMINOTRANSFERASE 15 U/L (3-41); ASPARTATE AMINO TRANSFERASE 20 U/L (5-40); CALCIUM 9.3 mg/dL (8.6-10.2); CARBON DIOXIDE 30 mEQ/L (20-30); CHLORIDE 100 mEQ/L (98-107); CREATININE 0.8 mg/dL (0.7-1.2); GLOMERULAR FILTRATION RATE > 60 mL/min (>60); HEMOLYSIS 0; SODIUM 138 mEQ/L (135-145); TOTAL PROTEIN 6.7 g/dL (6.6-8.7)
[2017-01-15 06:05] LABS: ANION GAP 8 (5-15); POTASSIUM 4.2 mEQ/L (3.4-4.9)
[2017-01-15] MEDS: D5 1/4NS w/KCl 20mEq 1,000 ML IV SCH (07:30)
[2017-01-15 08:00] VITALS: BP 111/73
[2017-01-15] MEDS: Propranolol ER 60mg cap ORAL SCH ×2 (08:10→17:14)
[2017-01-15] MEDS: Dyna-Hex 2% Top Sol 2oz TOPIC SCH (08:11)
--- NOTE | 2017-01-15 09:14 | General Progress Note ---
Progress Note Progress Note AVSS Much less ileostomy output past 24 hours Abdomen soft. Fluid under mid-point of incision - aspirated of 9cc serous - will send for C&S Urine 2650 BCIR ileo 1550 C. diff toxin - negative WBC 7800 Hgb 13.5 BUN 11 Cr 0.8 Albumin 3.5 Imp. Improved Plan: D/C IV fluids Start RN supervised BCIR self-intubations in AM if stable overnight YING MÉNDEZ Jan 15, 2017 09:14
[2017-01-15 12:00] VITALS: BP 128/85
[2017-01-15 16:00] VITALS: BP 105/76
[2017-01-15 20:00] VITALS: BP 111/70
[2017-01-16] VITALS: BP 107/74
[2017-01-16] MEDS: Oxymetazoline 0.05% Na Spray 30ml NASAL PRN (00:29)
[2017-01-16] MEDS: oxyCODONE 5mg IR tab ORAL PRN ×2 (01:22→07:57)
[2017-01-16 06:18] VITALS: BP 108/69
[2017-01-16 08:15] VITALS: BP 114/80
[2017-01-16] MEDS: Propranolol ER 60mg cap ORAL SCH ×2 (08:23→17:10)
[2017-01-16] MEDS: Dyna-Hex 2% Top Sol 2oz TOPIC SCH (08:23)
--- NOTE | 2017-01-16 09:58 | General Progress Note ---
Progress Note Progress Note AVSS Feeling okay with low residue diet ABdomen soft. [place] removed and steristrips applied to upper and lower portions. Mid-part of incision opened 3cm evacuating seropurulent fluid. Packed with dry gauze Urine 2950 BCIR ileo 840 BCIR ileo catheter removed - reinserts very readily Imp.: Wound infection (despite initial C&S from aspiration reveals no growth so far) Plan; Wound care/ packing QID RN supervised BCIR continent ileostomy self-intubations q3h am to hs d/c PIC line YING MÉNDEZ Jan 16, 2017 09:58
[2017-01-16] MEDS: oxyCODONE 5mg IR tab ORAL SCH ×5 (10:53→23:50)
[2017-01-16 12:00] VITALS: BP 117/80
[2017-01-16 16:00] VITALS: BP 112/72
[2017-01-16 20:45] VITALS: BP 122/80
[2017-01-16] MEDS: Mesalamine Enema 4gm/60ml RECTAL SCH (23:50)
[2017-01-17] VITALS: BP 107/69
[2017-01-17] MEDS: oxyCODONE 5mg IR tab ORAL SCH ×8 (02:00→23:16)
[2017-01-17 04:21] VITALS: BP 113/66
[2017-01-17 07:34] VITALS: BP 119/81
--- NOTE | 2017-01-17 08:44 | General Progress Note ---
Progress Note Progress Note AVSS Intubations of BCIR continent ileostomy are going well - no difficulty, no bleeding Abdomen soft. Open wound is clean without residual fluid, but persistent erythema surrounding it. C&S - no growth Urine 2890 BCIR fileo 615 Tolerating low residue diet Tolerated Rowasa instilled into the BCIR pouch last night Imp. Improved Plan: Continue q3h RN supervised BCIR self-intubations Instruct re wound care TID packing Anticipate discharge 48 hours YING MÉNDEZ Jan 17, 2017 08:44
[2017-01-17] MEDS: Propranolol ER 60mg cap ORAL SCH ×2 (08:56→18:00)
[2017-01-17 12:00] VITALS: BP 106/70
[2017-01-17 16:00] VITALS: BP 114/81
[2017-01-17 20:00] VITALS: BP 112/76
[2017-01-17] MEDS: Mesalamine Enema 4gm/60ml RECTAL SCH (23:07)
[2017-01-18] VITALS: BP 132/81
[2017-01-18] MEDS: oxyCODONE 5mg IR tab ORAL SCH ×9 (02:30→23:44)
[2017-01-18 04:00] VITALS: BP 134/72
[2017-01-18 08:00] VITALS: BP 122/76
--- NOTE | 2017-01-18 08:41 | General Progress Note ---
Progress Note Progress Note T 102.7 Denies any specific symptoms other than not feeling well Abdomen soft, non-distended, non-tender. Open wound is clean and surrounding erythema is much decreased. C&S shows only Divina Stoma nicely healed Urine 2274 BCIR ileo 2189 (eating 100% BCIR diet) Imp.: Fever ? etiology Plan: STAT labs, blood C&S, IV fluids, and start Rocephin IV q12h STAT CT scan abd+pelvis with oral and IV contrast Insert 28 Pereira to BCIR continent ileostomy to continuous drainage YING MÉNDEZ Jan 18, 2017 08:41
[2017-01-18] MEDS ORDERED: Fluconazole 100mg tab ORAL STA (08:46)
[2017-01-18] MEDS: Propranolol ER 60mg cap ORAL SCH ×3 (09:00→18:39)
[2017-01-18 09:24] LABS: BASOPHILS % (AUTO) 0.8 % (0.0-2.0); EOSINOPHILS % (AUTO) 2.2 % (0.0-3.0); LYMPHOCYTES % (AUTO) 7.4 % (20.0-45.0); MEAN CORPUSCULAR HEMOGLOBIN 32.9 PG (27.0-31.0); MEAN CORPUSCULAR HGB CONC 34.9 G/DL (32.0-36.0); MEAN CORPUSCULAR VOLUME 94 FL (80-99); MEAN PLATELET VOLUME 8.1 FL (6.5-10.1); MONOCYTES % (AUTO) 9.3 % (1.0-10.0); NEUTROPHILS % (AUTO) 80.2 % (45.0-75.0); PLATELET COUNT 249 K/UL (150-450); RED BLOOD COUNT 4.22 M/UL (4.70-6.10); RED CELL DISTRIBUTION WIDTH 11.9 % (11.6-14.8)
[2017-01-18 09:26] LABS: ALANINE AMINOTRANSFERASE 30 U/L (3-41); ALBUMIN/GLOBULIN RATIO 1.1 (1.0-2.7); ANION GAP 12 (5-15); ASPARTATE AMINO TRANSFERASE 24 U/L (5-40); CALCIUM 9.5 mg/dL (8.6-10.2); CARBON DIOXIDE 29 mEQ/L (20-30); CHLORIDE 95 mEQ/L (98-107); CREATININE 1.1 mg/dL (0.7-1.2); GLOMERULAR FILTRATION RATE > 60 mL/min (>60); HEMOLYSIS 0; POTASSIUM 4.2 mEQ/L (3.4-4.9); SODIUM 136 mEQ/L (135-145)
[2017-01-18] MEDS: D5 1/4NS w/KCl 20mEq 1,000 ML IV SCH ×2 (09:32→19:09)
[2017-01-18] MEDS: cefTRIAXone 2 GM in D5W 110 ML IVPB SCH (09:40)
[2017-01-18 11:31] VITALS: BP 117/72
--- NOTE | 2017-01-18 11:39 | Diagnostic Imaging Report ---
Indication: Abdominal pain. History of total colectomy and Ortega pouch revision. Technique: Continuous helical transaxial imaging of the abdomen and pelvis was obtained from the lung bases to the pubic symphysis during intravenous contrast administration. Coronal 2-D reformats were also obtained. Study obtained in a Siemens sensation [address] Total Dose length Product (DLP): [address] Dose Index Volume (CTDIvol): 17.93, 0.15 mGy Comparison: None Findings: Absence of the colon noted. There is air and contrast opacified pouch within the lower abdomen associated with anastomotic sutures. There is a catheter that resides within the pouch. There is good opacification of all multiple normal caliber small bowel loops proximal to the pouch. There is no evidence of obstruction. There is no evidence of intra-abdominal or abdominal wall abscess.There is a small incisional defect or wound that is vertically oriented in the midline. (for example image 57 of series 3) with surrounding subcutaneous edema, skin thickening consistent with Cellulitis. There is no evidence of a fluid collection to suggest abscess. The dermal/subcutaneous defect is superficial and does not extend to the rectus muscle or deeper. Small epiphrenic and epicardial nodes are demonstrated near the diaphragm, nonspecific in nature. The lung bases are clear. Focal fat noted in the liver near the falciform ligament. The liver is otherwise unremarkable. The gallbladder is contracted on this exam. No abnormalities of the pancreas, kidneys or spleen identified. Aorta shows some mural calcification. There is no free fluid. Small bilateral inguinal hernias are demonstrated. The urinary bladder is mildly distended. Impression: No acute findings within the abdomen or pelvis identified. Continent ileostomy in the right lower quadrant demonstrated with good opacification of the pouch and no evidence of bowel obstruction proximal to the pouch. No evidence of intra-abdominal abscess. Status post total colectomy Focal skin defect or wound within the midline anterior abdominal wall extending into the subcutaneous fat with surrounding subcutaneous edema likely cellulitis. No evidence of a abdominal wall abscess. The CT scanner at [facility] is accredited by the [employer] and the scans are performed using dose optimization techniques as appropriate to a performed exam including Automatic Exposure control.
[2017-01-18] MEDS ORDERED: Fluconazole 100mg tab ORAL SCH (13:30)
--- NOTE | 2017-01-18 15:48 | Diagnostic Imaging Report ---
Indication: Dyspnea Comparison: 01/06/17 A single view chest radiograph was obtained. Findings: Cardiomediastinal appearance is within normal limits for age. Pulmonary vascularity is appropriate. The diaphragmatic contour is smooth and costophrenic angles are sharp. No pleural effusions are identified. The bones are unremarkable. Impression: No acute findings
[2017-01-18 16:07] VITALS: BP 134/92
[2017-01-18 20:00] VITALS: BP 114/73
--- NOTE | 2017-01-18 22:28 | Consultation ---
Consult Note Consult Note Full ID Consult dictated. Asked by Dr. Luna to evaluate acute onset today of fevers 2 weeks after revision of ileostomy, just as he was about to be Labs Test 01/18/17 08:50 White Blood Count 8.0 K/UL (4.8-10.8) Red Blood Count 4.22 M/UL (4.70-6.10) Hemoglobin 13.9 G/DL (14.2-18.0) Hematocrit 39.7 % (42.0-52.0) Mean Corpuscular Volume 94 FL (80-99) Mean Corpuscular Hemoglobin 32.9 PG (27.0-31.0) Mean Corpuscular Hemoglobin Concent 34.9 G/DL (32.0-36.0) Red Cell Distribution Width 11.9 % (11.6-14.8) Platelet Count 249 K/UL (150-450) Mean Platelet Volume 8.1 FL (6.5-10.1) Neutrophils (%) (Auto) 80.2 % (45.0-75.0) Lymphocytes (%) (Auto) 7.4 % (20.0-45.0) Monocytes (%) (Auto) 9.3 % (1.0-10.0) Eosinophils (%) (Auto) 2.2 % (0.0-3.0) Basophils (%) (Auto) 0.8 % (0.0-2.0) Sodium Level 136 mEQ/L (135-145) Potassium Level 4.2 mEQ/L (3.4-4.9) Chloride Level 95 mEQ/L (98-107) Carbon Dioxide Level 29 mEQ/L (20-30) Anion Gap 12 (5-15) Blood Urea Nitrogen 12 mg/dL (7-23) Creatinine 1.1 mg/dL (0.7-1.2) Estimat Glomerular Filtration Rate > 60 mL/min (>60) Glucose Level 101 mg/dL (74-106) Calcium Level 9.5 mg/dL (8.6-10.2) Total Bilirubin 0.4 mg/dL (0.0-1.2) Aspartate Amino Transf (AST/SGOT) 24 U/L (5-40) Alanine Aminotransferase (ALT/SGPT) 30 U/L (3-41) Alkaline Phosphatase 80 U/L (40-129) Total Protein 7.0 g/dL (6.6-8.7) Albumin 3.8 g/dL (3.5-5.2) Globulin 3.2 g/dL Albumin/Globulin Ratio 1.1 (1.0-2.7) discharged. His past history is positive for ulcerative colitis in 1978 and multiple abdominal surgeries, most recently 2 weeks ago for malfunctioning continent ileostomy. This was revised by Dr. Luna without complications. 3 days ago he was seen to have a superficial wound infection which has grown C. albicans. Today he says he feels "ill" and says he had shaking chills this morning. His vital signs were afebrile until today, when he spiked to 102.8 and had a mild tachycardia, although his WBC was normal. His physical examination was unremarkable; the surgical wound in the midline abdomen had minimal erythema and no purulent discharge. Bowel sounds were normal. His LFTs and renal function have been normal. Today a CXR was normal and a CT scan of the abdomen did not show any possible source of infection other than perhaps the above-noted wound infection. Assessment/Plan assessment: 1) late postoperative fever 2) s/p multiple abdominal surgeries, most recently 2 weeks ago for revision of a malfunctioning continent ileostomy. 3) ulcerative colitis 4) post operative wound infection with C. albicans on culture discussion: The patient does not appear ill or toxic; he has been started on ceftriaxone and fluconazole, which I think is reasonable. There does not appear to be any obvious source for this fever beyond what has already been mentioned. recommendations: 1) Continue ceftriaxone/fluconazole for now 2) check blood and urine cultures 3) follow WBC, ESR probably can be discharged if fevers are down, as he looks well and has appropriate care in [place], [place] where he lives. Addendum: pt states about a month ago he had endoscopic sinus evaluation for chronic congestion, and says the doctor was "rough" on him, leaving him with some pain in his upper teeth on the right side which has however now resolved. Thank you Dr. Luna for asking me to see this interesting patient. ALVARO CALVILLO Jan 18, 2017 22:28
[2017-01-19] VITALS: BP 116/70
[2017-01-19] MEDS: oxyCODONE 5mg IR tab ORAL SCH ×7 (02:25→20:28)
[2017-01-19 04:00] VITALS: BP 131/82
[2017-01-19 04:45] LABS: BASOPHILS % (AUTO) 0.7 % (0.0-2.0); EOSINOPHILS % (AUTO) 0.7 % (0.0-3.0); LYMPHOCYTES % (AUTO) 7.9 % (20.0-45.0); MEAN CORPUSCULAR HEMOGLOBIN 32.2 PG (27.0-31.0); MEAN CORPUSCULAR HGB CONC 34.2 G/DL (32.0-36.0); MEAN CORPUSCULAR VOLUME 94 FL (80-99); MEAN PLATELET VOLUME 7.7 FL (6.5-10.1); MONOCYTES % (AUTO) 8.5 % (1.0-10.0); NEUTROPHILS % (AUTO) 82.2 % (45.0-75.0); PLATELET COUNT 246 K/UL (150-450); RED BLOOD COUNT 4.42 M/UL (4.70-6.10); RED CELL DISTRIBUTION WIDTH 11.8 % (11.6-14.8); WHITE BLOOD COUNT 10.1 K/UL (4.8-10.8)
[2017-01-19 05:04] LABS: ANION GAP 13 (5-15); CALCIUM 9.5 mg/dL (8.6-10.2); CARBON DIOXIDE 28 mEQ/L (20-30); CHLORIDE 94 mEQ/L (98-107); GLOMERULAR FILTRATION RATE > 60 mL/min (>60); HEMOLYSIS 6; LIPASE 19 U/L (< 60); POTASSIUM 3.6 mEQ/L (3.4-4.9); SODIUM 135 mEQ/L (135-145)
[2017-01-19] MEDS: D5 1/4NS w/KCl 20mEq 1,000 ML IV SCH (05:29)
[2017-01-19 06:49] LABS: ERYTHROCYTE SEDIMENTATION RATE 65 MM/HR (0-20)
[2017-01-19 07:55] VITALS: BP 122/71
--- NOTE | 2017-01-19 08:32 | General Progress Note ---
Progress Note Progress Note spiking fevers up to 102.8 [place] ill with chills yesterday but overnight feeling much better. No new complaints or symptoms. CT scan abd+pelvis and CXR both negative Abdomen soft, protruberant but not distended. Wound is clean without drainage or cellulitis Urine 1919 BCIR ileo 1809 Eating 100% low residue diet WBC 10,100 gb 14.2 BMP - wnl Albumin 3.[address] Carrillo's consultation Imp. Fever of ? etiology Plan: d/c IV fluids maintain continuous drainage of Miller continent ileostomy on Rocephin + po Diflucan f/u CBC in AM await blood culture reports YING MÉNDEZ Jan 19, 2017 08:32
[2017-01-19] MEDS: Propranolol ER 60mg cap ORAL SCH ×2 (08:36→17:02)
[2017-01-19] MEDS: Fluconazole 100mg tab ORAL SCH (08:36)
[2017-01-19] MEDS: cefTRIAXone 2 GM in D5W 110 ML IVPB SCH (08:37)
[2017-01-19 12:00] VITALS: BP 110/75
--- NOTE | 2017-01-19 14:12 | Diagnostic Imaging Report ---
Indications: Pain in right upper quadrant of the teeth after having an ENT exam done many days ago. Facial congestion Technique: Spiral images obtained through the facial bones. No IV contrast utilized. Multiplanar reconstructions were generated.Total dose length product 580 mGycm. CTDIvol(s) 28mGy. Dose reduction achieved using automated exposure control Comparison: None Findings: There is a large area of lucency in the alveolar ridge of the maxilla surrounding the medial root of the left first maxillary molar. Contiguous with this is an area of lucency extending posteriorly and eroding the lateral cortex. This area measures approximately 19 x 8 mm. No associated sinus disease is evident. A very small area of lucency surrounds the root of the right first maxillary premolar. No other definite acute dental abnormalities are evident. There is some streak artifact from dental amalgam in the mandibular molars bilaterally which may obscure pathology. There is evidence of multiple dental extractions, including the second and third maxillary molars bilaterally, second and third mandibular molars on the right, and the third mandibular molar on the left. There is opacification of numerous ethmoid air cells. The maxillary, sphenoid sinuses are clear. There is minimal inferior frontal mucosal disease. The nasal septum is midline. The maxillary ostia are patent bilaterally. The optic globes are intact. The retroseptal orbits are unremarkable. No acute fractures. The included intracranial structures are unremarkable. Impression: Evidence of apical root abscess and likely surrounding osteomyelitis involving the medial root of the left first mandibular molar and adjacent alveolar ridge Possible small apical root abscess involving the right first mandibular premolar Ethmoid and frontal sinus disease The CT scanner at [facility] is accredited by the [employer] and the scans are performed using protocols designed to limit radiation exposure to as low as reasonably achievable to attain images of sufficient resolution adequate for diagnostic evaluation.
[2017-01-19 16:00] VITALS: BP 118/79
[2017-01-19] MEDS: Ascorbic Acid 500mg tab ORAL PRN (16:02)
[2017-01-19 20:00] VITALS: BP 110/75
--- NOTE | 2017-01-19 21:23 | Consultation ---
Consult Note Consult Note S: pt feels better today, with no chills, but still has some sinus pain Labs Test 01/18/17 08:50 01/19/17 04:15 White Blood Count 8.0 K/UL (4.8-10.8) 10.1 K/UL (4.8-10.8) Red Blood Count 4.22 M/UL (4.70-6.10) 4.42 M/UL (4.70-6.10) Hemoglobin 13.9 G/DL (14.2-18.0) 14.2 G/DL (14.2-18.0) Hematocrit 39.7 % (42.0-52.0) 41.6 % (42.0-52.0) Mean Corpuscular Volume 94 FL (80-99) 94 FL (80-99) Mean Corpuscular Hemoglobin 32.9 PG (27.0-31.0) 32.2 PG (27.0-31.0) Mean Corpuscular Hemoglobin Concent 34.9 G/DL (32.0-36.0) 34.2 G/DL (32.0-36.0) Red Cell Distribution Width 11.9 % (11.6-14.8) 11.8 % (11.6-14.8) Platelet Count 249 K/UL (150-450) 246 K/UL (150-450) Mean Platelet Volume 8.1 FL (6.5-10.1) 7.7 FL (6.5-10.1) Neutrophils (%) (Auto) 80.2 % (45.0-75.0) 82.2 % (45.0-75.0) Lymphocytes (%) (Auto) 7.4 % (20.0-45.0) 7.9 % (20.0-45.0) Monocytes (%) (Auto) 9.3 % (1.0-10.0) 8.5 % (1.0-10.0) Eosinophils (%) (Auto) 2.2 % (0.0-3.0) 0.7 % (0.0-3.0) Basophils (%) (Auto) 0.8 % (0.0-2.0) 0.7 % (0.0-2.0) Sodium Level 136 mEQ/L (135-145) 135 mEQ/L (135-145) Potassium Level 4.2 mEQ/L (3.4-4.9) 3.6 mEQ/L (3.4-4.9) Chloride Level 95 mEQ/L (98-107) 94 mEQ/L (98-107) Carbon Dioxide Level 29 mEQ/L (20-30) 28 mEQ/L (20-30) Anion Gap 12 (5-15) 13 (5-15) Blood Urea Nitrogen 12 mg/dL (7-23) 10 mg/dL (7-23) Creatinine 1.1 mg/dL (0.7-1.2) 1.0 mg/dL (0.7-1.2) Estimat Glomerular Filtration Rate > 60 mL/min (>60) > 60 mL/min (>60) Glucose Level 101 mg/dL (74-106) 129 mg/dL (74-106) Calcium Level 9.5 mg/dL (8.6-10.2) 9.5 mg/dL (8.6-10.2) Total Bilirubin 0.4 mg/dL (0.0-1.2) Aspartate Amino Transf (AST/SGOT) 24 U/L (5-40) Alanine Aminotransferase (ALT/SGPT) 30 U/L (3-41) Alkaline Phosphatase 80 U/L (40-129) Total Protein 7.0 g/dL (6.6-8.7) Albumin 3.8 g/dL (3.5-5.2) Globulin 3.2 g/dL Albumin/Globulin Ratio 1.1 (1.0-2.7) Erythrocyte Sedimentation Rate 65 MM/HR (0-20) Lipase 19 U/L (< 60) O: Tmax 100.5 (improved) Lungs: cl Cor: reg Abd: soft, NT CT -> apical abscess left upper 1st molar with suspected osteomyelitis adjacent Assessment/Plan A: 1) ulcerative colitis 2) s/p multiple abdominal surgeries 3) recent revision of ileostomy 2 weeks ago 4) new postop fevers 5) osteomyelitis of left maxilla Pt with recent onset of fevers. Because he reported sinus pain and recent sinus and dental procedures, yesterday I ordered a CT scan which shows dental abscess and probable osteomyelitis. In view of his elevated ESR and fever and borderline leukocytosis, I think we will need to treat an apparent osteomyelitis empirically with oral julian coverage, eg. vanco/Zosyn. He will likely need 6 weeks of therapy. I anticipate he will be able to travel home to [place] in the short-term future. Rec: 1) d/c ceftriaxone 2) start vanco/Zosyn 3) MRI of sinuses Discussed with Dr. Luna. ALVARO CALVILLO Jan 19, 2017 21:23
[2017-01-19] MEDS: Piperacillin/Tazobactam 3.375 GM in D5W 110 ML IVPB SCH (23:08)
[2017-01-20] VITALS: BP 111/73
[2017-01-20] MEDS: oxyCODONE 5mg IR tab ORAL SCH ×9 (00:11→23:59)
[2017-01-20] MEDS: Vancomycin 1250mg/D5W 250ml IVPB SCH ×2 (01:00→12:27)
[2017-01-20 04:00] VITALS: BP 122/79
[2017-01-20] MEDS: Piperacillin/Tazobactam 3.375 GM in D5W 110 ML IVPB SCH ×3 (05:27→21:03)
[2017-01-20 05:35] LABS: BASOPHILS % (AUTO) 1.2 % (0.0-2.0); EOSINOPHILS % (AUTO) 6.6 % (0.0-3.0); LYMPHOCYTES % (AUTO) 16.4 % (20.0-45.0); MEAN CORPUSCULAR HEMOGLOBIN 32.2 PG (27.0-31.0); MEAN CORPUSCULAR HGB CONC 34.1 G/DL (32.0-36.0); MEAN CORPUSCULAR VOLUME 95 FL (80-99); MEAN PLATELET VOLUME 8.4 FL (6.5-10.1); MONOCYTES % (AUTO) 13.8 % (1.0-10.0); PLATELET COUNT 219 K/UL (150-450); WHITE BLOOD COUNT 8.3 K/UL (4.8-10.8)
[2017-01-20 08:29] VITALS: BP 132/83
--- NOTE | 2017-01-20 08:46 | General Progress Note ---
Progress Note Progress Note Last fever 100.4 at noon yesterday. Maxilofacial CT reveals molar apical root abscess with surrounding osteomyelitis. MRI to be performed this AM Abdomen soft, wound clean - being packed by patient TID Urine 3200 BCIR ileo 1025 WBC down 8300 Hgb 12.9 Imp: Osteomyelitis right alveolar ridge +/- sinus Plan: To have MRI today On Zosyn + Vancomycin I will call the patient's PCP Dr. Joselito Munoz [phone] [place]/ [place], [place] - to arrange for continuation of IV antibiotics when discharged. Anticipate his being stable for flying home on Wednesday 01/24. He will arrange for his flight/ticket with [place] Will provide the patient with a disc with the CT and MRI, as well as the printed reports YING MÉNDEZ Jan 20, 2017 08:46
[2017-01-20] MEDS: Propranolol ER 60mg cap ORAL SCH ×2 (09:57→18:30)
[2017-01-20] MEDS: Fluconazole 100mg tab ORAL SCH (09:57)
[2017-01-20 11:31] VITALS: BP 129/87
[2017-01-20 16:25] VITALS: BP 111/72
--- NOTE | 2017-01-20 16:37 | Diagnostic Imaging Report ---
Indication: A maxillary apical root abscess Technique: The maxillofacial region was imaged in a 1.5 Monika magnet. Sequences obtained include multiplanar T1 fast spin-echo, post gadolinium T1 fast spin-echo, T2 fast spin-echo with fat saturation. Comparison: Maxillofacial CT 01/19/17 A T1 hypointense/T2 hyperintense edema (1.4 x 1.0 x 1.1 CM) demonstrated within the left aspect of the superior alveolar ridge in association with the left upper first molar tooth which is still present. Findings consistent with acute osteomyelitis. Findings correspond to area of lucency demonstrated initially on CT. Referral to dental/oral surgeon is recommended. There is a small amount of adjacent periodontal T2 hyperintense soft tissue edema. Noted. The study is degraded by motion. There is no lymphadenopathy identified. The mandible is unremarkable. There is some T2 hyperintense Deb thickening noted within the ethmoid sinus. Impression: Acute osteomyelitis demonstrated within the left superior alveolar ridge adjacent to an apical root abscess involving the posterior most left upper molar tooth.
--- NOTE | 2017-01-20 20:04 | Consultation ---
Consult Note Consult Note S: feels better, still with some mouth pain Labs Test 01/18/17 08:50 01/19/17 04:15 01/20/17 04:20 White Blood Count 8.0 K/UL (4.8-10.8) 10.1 K/UL (4.8-10.8) 8.3 K/UL (4.8-10.8) Red Blood Count 4.22 M/UL (4.70-6.10) 4.42 M/UL (4.70-6.10) 4.00 M/UL (4.70-6.10) Hemoglobin 13.9 G/DL (14.2-18.0) 14.2 G/DL (14.2-18.0) 12.9 G/DL (14.2-18.0) Hematocrit 39.7 % (42.0-52.0) 41.6 % (42.0-52.0) 37.8 % (42.0-52.0) Mean Corpuscular Volume 94 FL (80-99) 94 FL (80-99) 95 FL (80-99) Mean Corpuscular Hemoglobin 32.9 PG (27.0-31.0) 32.2 PG (27.0-31.0) 32.2 PG (27.0-31.0) Mean Corpuscular Hemoglobin Concent 34.9 G/DL (32.0-36.0) 34.2 G/DL (32.0-36.0) 34.1 G/DL (32.0-36.0) Red Cell Distribution Width 11.9 % (11.6-14.8) 11.8 % (11.6-14.8) 12.0 % (11.6-14.8) Platelet Count 249 K/UL (150-450) 246 K/UL (150-450) 219 K/UL (150-450) Mean Platelet Volume 8.1 FL (6.5-10.1) 7.7 FL (6.5-10.1) 8.4 FL (6.5-10.1) Neutrophils (%) (Auto) 80.2 % (45.0-75.0) 82.2 % (45.0-75.0) 62.0 % (45.0-75.0) Lymphocytes (%) (Auto) 7.4 % (20.0-45.0) 7.9 % (20.0-45.0) 16.4 % (20.0-45.0) Monocytes (%) (Auto) 9.3 % (1.0-10.0) 8.5 % (1.0-10.0) 13.8 % (1.0-10.0) Eosinophils (%) (Auto) 2.2 % (0.0-3.0) 0.7 % (0.0-3.0) 6.6 % (0.0-3.0) Basophils (%) (Auto) 0.8 % (0.0-2.0) 0.7 % (0.0-2.0) 1.2 % (0.0-2.0) Sodium Level 136 mEQ/L (135-145) 135 mEQ/L (135-145) Potassium Level 4.2 mEQ/L (3.4-4.9) 3.6 mEQ/L (3.4-4.9) Chloride Level 95 mEQ/L (98-107) 94 mEQ/L (98-107) Carbon Dioxide Level 29 mEQ/L (20-30) 28 mEQ/L (20-30) Anion Gap 12 (5-15) 13 (5-15) Blood Urea Nitrogen 12 mg/dL (7-23) 10 mg/dL (7-23) Creatinine 1.1 mg/dL (0.7-1.2) 1.0 mg/dL (0.7-1.2) Estimat Glomerular Filtration Rate > 60 mL/min (>60) > 60 mL/min (>60) Glucose Level 101 mg/dL (74-106) 129 mg/dL (74-106) Calcium Level 9.5 mg/dL (8.6-10.2) 9.5 mg/dL (8.6-10.2) Total Bilirubin 0.4 mg/dL (0.0-1.2) Aspartate Amino Transf (AST/SGOT) 24 U/L (5-40) Alanine Aminotransferase (ALT/SGPT) 30 U/L (3-41) Alkaline Phosphatase 80 U/L (40-129) Total Protein 7.0 g/dL (6.6-8.7) Albumin 3.8 g/dL (3.5-5.2) Globulin 3.2 g/dL Albumin/Globulin Ratio 1.1 (1.0-2.7) Erythrocyte Sedimentation Rate 65 MM/HR (0-20) Lipase 19 U/L (< 60) O: VSS, afebrile. Lungs: cl Cor: reg Abd: soft MRI: confirms periodontal abscess and surrounding acute osteomyelitis 1st upper molar on left Assessment/Plan A: 1) ulcerative colitis 2) s/p multiple abdominal surgeries, most recently 2 weeks ago 3) minor postop wound infection, improved 4) dental abscess and osteomyelitis, fever improved on vanco and Zosyn Rec: 1) D/C planning for return home 2) OK to miss a dose of antibiotics on travel day 3) likely needs tooth extraction and 6 weeks of antibiotics, PICC line. 4) would continue vanco and Zosyn for now; could try ertapenem which has good anaerobic coverage and is q day dosing at home Discussed with pt in detail. ALVARO CALVILLO Jan 20, 2017 20:04
[2017-01-20 20:15] VITALS: BP 128/81
[2017-01-21] VITALS: BP 102/71
[2017-01-21] MEDS: Vancomycin 1250mg/D5W 250ml IVPB SCH ×2 (01:13→13:49)
[2017-01-21] MEDS: oxyCODONE 5mg IR tab ORAL SCH ×7 (02:58→21:27)
[2017-01-21 04:31] VITALS: BP 110/80
[2017-01-21] MEDS: Piperacillin/Tazobactam 3.375 GM in D5W 110 ML IVPB SCH ×3 (05:31→21:27)
[2017-01-21 08:00] VITALS: BP 112/79
[2017-01-21] MEDS: Propranolol ER 60mg cap ORAL SCH ×2 (08:30→17:41)
[2017-01-21] MEDS: Fluconazole 100mg tab ORAL SCH (08:30)
[2017-01-21 12:00] VITALS: BP 120/76
[2017-01-21] MEDS: Ascorbic Acid 500mg tab ORAL PRN (15:33)
[2017-01-21 16:00] VITALS: BP 134/79
[2017-01-21] MEDS ORDERED: Tubing IV Secondary IV ONE (18:47)
[2017-01-21] MEDS ORDERED: NS Irrig 1000ml ONE (18:47)
[2017-01-21 20:00] VITALS: BP 120/82
[2017-01-22] VITALS: BP 125/78
--- NOTE | 2017-01-22 00:30 | Progress Note ---
DATE: 01/21/2017 This is coverage for Dr. Talha Luna. Subjective: The patient had revision of his stoma and he is doing well from the perspective of surgical healing. OBJECTIVE: VITAL SIGNS: He has been afebrile. Skin: He has a small opening, which he is packing with each dressing change where an abscess had been drained. It had grown out fungus. HEENT: He was then noted to have an apparent infection in a tooth with a sinus tract and has been put on systemic antibacterial course. Plan: Plan is for discharge on Tuesday with care to be resumed at [place] in [place]. There are no issues with the pouch or with his GI tract at the moment. Continue IV antibiotics and local wound care on the abdominal wall. Arrange for discharge on Tuesday if no new issues develop. Johnathon Calle M.D. DR: WALLY JOB#: [id number] CC:
[2017-01-22] MEDS: oxyCODONE 5mg IR tab ORAL SCH ×8 (00:37→21:27)
[2017-01-22] MEDS: Vancomycin 1250mg/D5W 250ml IVPB SCH ×2 (01:52→12:20)
[2017-01-22 04:00] VITALS: BP 117/63
[2017-01-22] MEDS: Piperacillin/Tazobactam 3.375 GM in D5W 110 ML IVPB SCH ×3 (06:10→21:27)
[2017-01-22 08:00] VITALS: BP 96/60
[2017-01-22] MEDS: Propranolol ER 60mg cap ORAL SCH ×2 (09:33→18:29)
[2017-01-22] MEDS: Fluconazole 100mg tab ORAL SCH (09:34)
[2017-01-22 12:00] VITALS: BP 114/79
[2017-01-22 16:00] VITALS: BP 124/85
[2017-01-22 20:25] VITALS: BP 128/83
[2017-01-23] MEDS: oxyCODONE 5mg IR tab ORAL SCH ×8 (00:16→21:02)
[2017-01-23] MEDS: Vancomycin 1250mg/D5W 250ml IVPB SCH ×2 (00:16→12:06)
[2017-01-23 00:22] VITALS: BP 130/79
[2017-01-23 04:00] VITALS: BP 118/79
[2017-01-23] MEDS: Piperacillin/Tazobactam 3.375 GM in D5W 110 ML IVPB SCH ×3 (06:12→21:01)
[2017-01-23 07:49] VITALS: BP 123/82
[2017-01-23] MEDS: Fluconazole 100mg tab ORAL SCH (08:54)
[2017-01-23] MEDS: Propranolol ER 60mg cap ORAL SCH ×2 (08:54→18:04)
[2017-01-23 11:31] VITALS: BP 115/77
[2017-01-23] MEDS ORDERED: 1/2 NS 1000ml IV ONE (14:01)
[2017-01-23] MEDS ORDERED: Tubing IV Secondary IV ONE ×2 (14:01→15:50)
[2017-01-23] MEDS: Ascorbic Acid 500mg tab ORAL PRN (14:25)
[2017-01-23 15:54] VITALS: BP 126/81
[2017-01-23 20:04] VITALS: BP 115/75
[2017-01-24] MEDS: oxyCODONE 5mg IR tab ORAL SCH ×5 (00:10→09:16)
[2017-01-24 00:19] VITALS: BP 116/78
[2017-01-24] MEDS: Vancomycin 1250mg/D5W 250ml IVPB SCH (01:00)
[2017-01-24 04:00] VITALS: BP 125/80
--- NOTE | 2017-01-24 04:00 | Progress Note ---
DATE: 01/23/2017 SURGICAL PROGRESS NOTE I am covering for Dr. Talha Luna. Subjective: The patient has continued to remain afebrile after his stomal revision of his BCIR pouch. He is being treated with antibiotics because of a dental infection, which appeared to be the source of his fever and he is now getting intravenous antibiotics and it is planned that he be transferred to his primary care physician back in [place] tomorrow. He has several social issue questions, which I cannot address, but Dr. Luna will be returning tomorrow morning and will help him with these plans. There are no new surgical problems. Johnathon Calle M.D. DR: BOSSMAN JOB#: [id number] CC:
[2017-01-24] MEDS: Piperacillin/Tazobactam 3.375 GM in D5W 110 ML IVPB SCH (06:14)
[2017-01-24 08:29] VITALS: BP 125/85
[2017-01-24] MEDS: Propranolol ER 60mg cap ORAL SCH (08:31)
[2017-01-24] MEDS: Fluconazole 100mg tab ORAL SCH (08:32)
--- NOTE | 2017-01-24 08:38 | General Progress Note ---
Progress Note Progress Note Tmax 100.2 doing well overall. Eating and intubating his Miller pouch Abdomen soft, open wound is clean, scant drainage I&O satisfactory Imp. Stable for discharge Plan: Patient will see his [place] MDs at home tomorrow - he has a disc with the scans, and all the reports Per my discussions with his PMD, he was given Augmentin 875mg #4 - to take one upon arrival home then q12h until [place] Mary resume IV antibiotcs for the osteomyelitis f/u with mej by telephone appointment 01/27 full supplies/instructions/limitations provided/discussed YING MÉNDEZ Jan 24, 2017 08:38
--- NOTE | 2017-01-26 05:30 | Discharge Summary ---
DATE OF ADMISSION: 01/06/2017 DATE OF DISCHARGE: 01/24/2017 History: The patient is a 56-year-old male in overall stable health with a malfunctioning Miller continent ileostomy with progressively more difficult intubations with bleeding. The patient developed ulcerative colitis in 1978. In 1981 he underwent proctocolectomy with Olga ileostomy. He had severe allergies to the appliances required. In 1995 he underwent conversion of his malfunctioning conventional ileostomy to a Miller type of Kock pouch continent ileostomy. In September 2014 he required revision because of severe incontinence of stool and gas and frequent intubations. He had a very scarred pouch which was resected and a new Miller continent ileostomy was created. There was no evidence of Crohn's disease. The patient did very well until August of this year when he noted that his intubation catheters would fold over at the tip and present difficulty withdrawing the catheter causing bleeding. He is admitted to undergo pouch endoscopy and surgical revision as required. MEDICATIONS: Propranolol 40 mg twice a day for hypertension, clonazepam 1 mg twice a day, oxycodone 10 mg every three hours for chronic back and neck pain and myofascial pain, and ibuprofen 800 mg one to two times daily for myofascial pain. ALLERGIES TO MEDICATIONS: None. OPERATIONS: The patient has recently undergone sinus surgery and dental extractions. He presents with some sinus congestion. Review Of Systems: Chronic back and neck pain and chronic myofascial pain for many years. Physical Examination: The patient was 5 feet 7 inches and 185 pounds. The abdomen was soft, somewhat distended or protuberant. There was a long midline incision with the stoma of his Miller continent ileostomy low in the right lower quadrant. The patient underwent endoscopy of his Miller pouch on the day of admission revealing a redundant and angulated access segment with a normal pouch and nipple valve. There were some superficial ulcerations around the base of the nipple valve. The patient was appropriately prepared with insertion of a dual lumen PICC line, bowel prep, continuous drainage of his pouch, intravenous antibiotics, and preoperative subcutaneous heparin. On 01/07/2017 the patient underwent laparotomy with revision of the Miller continent ileostomy stoma and access segment. Postoperatively the patient was maintained NPO with indwelling ileostomy pouch catheter to continuous drainage and pain controlled with morphine SAND CUTTER OPERATOR. His admission hemoglobin was 13.6 and fell to 11.7 postoperatively ultimately returning to 12.9 prior to discharge. He also had a very low serum iron of 21 and a low vitamin B12 of 139 and he received Venofer intravenously at 100 mg nightly for 1000 mg total and 2 injections of vitamin B12, 1 mg each. The patient received Afrin nasal spray and Sudafed for sinus congestion. His white count was 9000. He had emotional reaction with crying episodes in the first couple of days after surgery, which improved after discontinuing the basal infusion of the SAND CUTTER OPERATOR and he was ambulating in the hallways. His ileus began to resolve and he was started on a clear liquid diet on the fourth postoperative day, which was advanced to full liquid diet and then a low-residue diet. His SAND CUTTER OPERATOR was discontinued and his pre-admission oxycodone was resumed. On the sixth postoperative day, continuous drainage of his Miller continent ileostomy pouch was maintained. He tolerated his diet, but developed excessive ileostomy output with dehydration with 2300 mL in 24 hours. Intravenous fluids were resumed. C. difficile toxin was negative and his output decreased dramatically and spontaneously without treatment. White count 7800 and hemoglobin 13.5. BUN 11, creatinine 0.8, and albumin 3.5, on the eighth postoperative day. Intravenous fluids were discontinued. He developed some fluid under the midpoint of the incision, which was aspirated of 9 mL of serous fluid with cultures showing a light growth of Divina. The fluid recurred and the wound was opened for several centimeters removing jonna. The rest of the jonna were removed and Steri-Strips were applied and the wound was treated with dry gauze packing QID. There was no cellulitis or other evidence of inflammation. The patient's Miller continent ileostomy indwelling catheter was removed on the ninth postoperative day and he was started on every three-hour self intubations from awakening to bedtime with supervision by the nurses. The PICC line was removed on this day. He was afebrile. The patient did well with self intubations. The wound was healing. He was started on Rowasa instilled into the pouch every night for the inflammatory changes seen during his pre-operative pouch endoscopy. and plans were made for discharge. The next day his temperature spiked to 102.7 without any specific symptoms and without leukocytosis. The abdomen was unremarkable. The open wound was clean. The patient was started on Rocephin intravenous every 24 hours after the labs and cultures were obtained. A stat CT scan of abdomen and pelvis with oral and intravenous contrast was performed revealing no abnormality and no explanation for the high fevers that continued to spike. His white count did not rise. It was 10,100 without a left shift. The patient was seen in consultation by Infectious Diseases Dr. Marquise Carrillo and started on oral Diflucan. Blood cultures were negative. In view of the lack of an etiology and history of sinus surgery and dental extractions, the patient underwent a maxillofacial CT scan revealing a left side molar apical root abscess with surrounding osteomyelitis of the alveolar ridge. I spoke with the patient's primary care physician from [facility] in [place], [place] to inform him of this new condition and that the patient will need intravenous antibiotics for 6 weeks potentially. He was started on Zosyn and Vancomycin by the Infectious Diseases specialty development consultant. A maxillofacial MRI confirmed acute osteomyelitis within the left superior alveolar ridge adjacent to an apical root abscess involving the posterior most left upper molar tooth. The patient's spiking fevers diminished with maximal temperature of 100.4. He continued to do well with eating and with self intubations and plans were made for him to be discharged on oral Augmentin and then to proceed the following morning after arriving back home in [place] to the [facility] to be seen by oral surgery and ENT per my discussions with his [facility] physicians. He was provided a disc with the CT and MRI and all of the reports. He was stable for discharge with maximal temperature in the previous 24 hours of 100.2. The patient was to be followed up in three days by telephone appointment with me. Full instructions, limitations, and supplies were provided and discussed and reviewed with him. DISCHARGE DIAGNOSES: 1. Malfunctioning Miller continent ileostomy with severe difficulty with intubation and bleeding. 2. History of ulcerative colitis. 3. Status post multiple abdominal operations. 1. Proctocolectomy and Olga ileostomy in 1981. 2. Creation of Miller continent ileostomy in 1995. 3. Resection of failed Miller continent ileostomy and creation of a new Miller continent ileostomy pouch in September 2014. 4. Hypertension. 5. Chronic back and neck pain. 6. Chronic myofascial pain. Operation Performed On This Admission: Laparotomy with revision of Miller continent ileostomy stoma and access segment. Complications: development of left molar apical root abscess with osteomyelitis of the adjacent left superior alveolar ridge. Talha Luna M.D. DR: JOAQUINA JOB#: [id number] CC: [id number]
== END 2017-01-24 09:40 | disposition home or self-care (01) | DRG 348 ==
LOC: 3E 09:06
PROC: 0DJD8ZZ Inspection of Lower Intestinal Tract, Via Natural or Artificial Opening Endoscopic (ICD-10-PCS; principal; 2017-01-06 13:05)
PROC: 0WQFXZ2 Repair Abdominal Wall, Stoma, External Approach (ICD-10-PCS; 2017-01-07)
DX: K94.13 Enterostomy malfunction (principal); K56.7 Ileus, unspecified; B37.89 Other sites of candidiasis; T81.4XXA Infection following a procedure, initial encounter; I10 Essential (primary) hypertension; M79.1 Myalgia; K04.7 Periapical abscess without sinus; M27.2 Inflammatory conditions of jaws; R00.0 Tachycardia, unspecified; E86.0 Dehydration; M54.2 Cervicalgia; M54.9 Dorsalgia, unspecified
CPT/HCPCS: 36415; 36569; 70486; 70543; 71010; 74177; 76937; 80048; 80053; 80202; 81001; 82607; 83540; 83550; 83690; 85025; 85610; 85651; 85730; 86850; 86900; 86901; 87040; 87070; 87086; 87205; 87324; 93005; 94003; 94150; A9585; J2180; J2250; J2405; J2710